=== PATIENT | male | born 1970 | race Caucasian/White ===

== ENCOUNTER 2023-02-02 07:04 | Day surgery (SDC) | payer OTHER ==
[~2023-02-02] VITALS: Ht 180.3 cm; Wt 100.0 kg
[~2023-02-02 07:04] MED LIST: NS 1,000 ML IV ONE
[2023-02-02] MEDS ORDERED: PROT20TA11 PO (07:51)
[2023-02-02] MEDS ORDERED: PEPC1TAB5 PO (07:51)
[2023-02-02] MEDS ORDERED: propofoL 200 MG/20 ML VIAL As Ordered ONE ×3 (08:48→09:34)
[2023-02-02 10:19] VITALS: BP 139/84
== END 2023-02-02 10:55 | disposition home or self-care (01) ==
LOC: M OPP 07:04
PROVIDERS: ATTEND Internal Medicine Gastroenterology
DX: Z12.11 Encounter for screening for malignant neoplasm of colon (principal); D12.6 Benign neoplasm of colon, unspecified; K64.4 Residual hemorrhoidal skin tags; K64.8 Other hemorrhoids; C15.9 Malignant neoplasm of esophagus, unspecified; K29.70 Gastritis, unspecified, without bleeding; K44.9 Diaphragmatic hernia without obstruction or gangrene; G47.33 Obstructive sleep apnea (adult) (pediatric); F17.200 Nicotine dependence, unspecified, uncomplicated; Z88.1 Allergy status to other antibiotic agents; Z88.8 Allergy status to other drugs, medicaments and biological substances